=== PATIENT | male | born 1990 | race Caucasian/White ===

== ENCOUNTER 2023-08-10 22:15 | Emergency (ER) | payer SELFPAY ==
[~2023-08-10] VITALS: Ht 167.6 cm; Wt 117.9 kg
[2023-08-10 22:39] VITALS: BP_SYST 167; PULSE 92; RESP 16; TEMP 98; O2SAT 94
[2023-08-11] MEDS ORDERED: LIDOCAINE 1% 10 MG/ML, 20 ML MDV INJ ONE (00:15)
[2023-08-11] MEDS: ACETAMINOPHEN 500 MG TABLET PO ONE (00:15)
[2023-08-11] MEDS: KETOROLAC TROMETHAMINE 30 MG VIAL IM ONE (00:15)
[2023-08-11 01:20] VITALS: BP_SYST 162; PULSE 98; RESP 18; TEMP 97.7; O2SAT 92
== END 2023-08-11 01:20 | disposition home or self-care (01) ==
LOC: SED 22:15
DX: L05.01 Pilonidal cyst with abscess (principal); Z79.899 Other long term (current) drug therapy
CPT/HCPCS: 99282